=== PATIENT | male | born 1990 | race Hispanic/Latino ===

== ENCOUNTER 2018-01-11 19:01 | Observation (INO) | payer OTHER ==
[2018-01-11 19:27] VITALS: BMI 22.9
--- NOTE | 2018-01-11 20:05 | ED PDOC ---
Arrival/HPI - General Chief Complaint: Headache Time Seen by Provider: 01/11/18 19:36 Historian: Patient, Partner (girlfriend) - History of Present Illness Narrative History of Present Illness (Text): 01/11/18 19:56 A 27 year old male, with no significant past medical history and takes no medications/supplements, who is accompanied by girlfriend and presents to the emergency department for anxiety and change in behavior. Per girlfriend, patient has not been himself for 3 days. Patient had a sudden change in personality and mood 3 days ago. Patient has not been speaking as often as usual , has episodes of forgetfulness and confusion, and fluctuating appetite. Patient reports feeling increase in heart rate and "feeling off". Patient denies other complaints at this time. Also, per girlfriend, no one else knows about patient's current condition at this time. Patient also notes that he was seen at an urgent care prior to arrival, and was advised to come to the emergency department for further evaluation. No PMD Past Medical History - Provider Review Nursing Documentation Reviewed: Yes - Infectious Disease Hx of Infectious Diseases: None - Psychiatric Hx Substance Use: No - Anesthesia Hx Anesthesia: No Family/Social History - Physician Review Nursing Documentation Reviewed: Yes Family/Social History: No Known Family HX Smoking Status: Never Smoked Hx Alcohol Use: Yes Frequency of alcohol use: Socially Hx Substance Use: No Allergies/Home Meds Allergies/Adverse Reactions: Allergies No Known Allergies Allergy (Verified 01/11/18 19:36) Home Medications: Home Meds Medication Instructions Recorded Confirmed No Known Home Med 01/11/18 01/11/18 Review of Systems - Physician Review All systems were reviewed & negative as marked: Yes - Review of Systems Constitutional: absent: Fevers Skin: absent: Rash Neurological: absent: Headache Psychiatric: Anxiety, Other (change in behavior, episodes of forgetfulness, personality change) Physical Exam - Physical Exam Narrative Physical Exam (Text): Gen: VS reviewed, alert, well developed, well nourished, nontoxic, mild distress. ENT: normal pharynx Eye: EOMI, PERRL Neck: no JVD, supple, no adenopathy CV: regular rate, regular rhythm, no rubs, no murmur, no gallops, S1, S2, pulses equal and strong Pulm: no distress, clear to auscultation, no wheeze, no rhonchi, breath sounds equal, no rales Abd: soft, nontender, no guarding, no rebound, no rigidity, normal bowel sounds Ext: no edema Skin: good color, no rash, no cyanosis Psych: responds appropriately to questions, flat affect Neuro: oriented x 3, CN2-12 intact grossly, motor intact, sensation intact Vital Signs Reviewed: Yes Vital Signs Temp Pulse Resp BP Pulse Ox 01/11/18 21:27 98.3 F 60 18 132/69 96 01/11/18 19:01 98.3 F 87 18 136/64 99 Temperature: Afebrile Blood Pressure: Normal Pulse: Regular Respiratory Rate: Normal Appearance: Positive for: Well-Appearing, Non-Toxic, Comfortable Pain Distress: None Mental Status: Positive for: Alert and Oriented X 3 Medical Decision Making ED Course and Treatment: 01/11/18 20:00 Impression: 27 year old male with anxiety and change in behavior. Physical exam shows flat affect; otherwise no other acute findings on physical examination. Plan: -- EKG -- Head CT -- Labs -- Reassess and disposition Progress Notes: 01/11/18 21:47 patient seen for acute confusion, onset 3 days ago, no traumatic or social event that may have triggered this, no psych hx,no AV hallucinations. patient reports that his headache was mild earlier today but is absent at this time. patient does not exhibit signs/symptoms of meningitis or encephalitis. will admit to hospital for further workup/eval 01/11/18 21:53: Case discussed in detail with Dr. Carmichael.accepts admit. dr. garza for neuro consult, ivg 1/2 ns, AM labs and he will follow up with results. CT Head Without Intravenous Contrast Dictated and Authenticated by: Gaby Stanton MD 01/11/2018 9:24 PM Eastern Time ([place] & [place]) IMPRESSION: No evidence of acute intracranial hemorrhage. 01/11/18 21:57 01/11/18 22:09 - Lab Interpretations Lab Results: 01/11/18 20:26 01/11/18 20:26 Lab Results 01/11/18 20:51: Urine Opiates Screen Negative, Urine Methadone Screen Negative, Ur Barbiturates Screen Negative, Ur Phencyclidine Scrn Negative, Ur Amphetamines Screen Negative, U Benzodiazepines Scrn Negative, U Oth Cocaine Metabols Negative, U Cannabinoids Screen Negative 01/11/18 20:26: Ammonia < 9 L 01/11/18 20:26: TSH 3rd Generation 2.47, Alcohol, Quantitative < 10 01/11/18 20:26: Sodium 142, Potassium 4.3, Chloride 99, Carbon Dioxide 27, Anion Gap 20, BUN 11, Creatinine 0.8, Est GFR ( Amer) > 60, Est GFR (Non- Af Amer) > 60, Random Glucose 99, Calcium 9.9, Magnesium 2.1, Total Bilirubin 0.4, AST 32, ALT 29, Alkaline Phosphatase 74, Lactate Dehydrogenase 354, Total Creatine Kinase 387 H, CK-MB (CK-2) 0.6, CK-MB (CK-2) % Cancelled, Troponin I < 0.01, Total Protein 8.2, Albumin 5.0 H, Globulin 3.2, Albumin/Globulin Ratio 1.6 01/11/18 20:26: WBC 8.5, RBC 4.63, Hgb 14.2, Hct 40.9 L, MCV 88.3, MCH 30.7, MCHC 34.7, RDW 12.4, Plt Count 277, MPV 10.3, Gran % 76.2 H, Lymph % (Auto) 18.0 L, [place] % (Auto) 5.5, Eos % (Auto) 0.1 L, Baso % (Auto) 0.2, Gran # 6.47, Lymph # (Auto) 1.5, [place] # (Auto) 0.5, Eos # (Auto) 0.0, Baso # (Auto) 0.02 01/11/18 19:24: POC Glucose (mg/dL) 82 I have reviewed the lab results: Yes - RAD Interpretation Radiology Orders: 01/11/18 20:00 HEAD W/O CONTRAST [CT] Stat EXAM: CT Head Without Intravenous Contrast CLINICAL HISTORY: The patient is a 27 years male; Signs and symptoms; Altered mental status/ memory loss; Confusion or disorientation 01/11/2018 8:00 PM TECHNIQUE: Axial computed tomography images of the head/brain without intravenous contrast. All CT scans at this facility use at least one of these dose optimization techniques: automated exposure control; mA and/or kV adjustment per patient size (includes targeted exams where dose is matched to clinical indication); or iterative reconstruction. COMPARISON: No relevant prior studies available. FINDINGS: Brain: Unremarkable. No hemorrhage. No significant white matter disease. No edema. Ventricles: Unremarkable. No ventriculomegaly. Bones/joints: Unremarkable. No acute fracture. Soft tissues: Unremarkable. Sinuses: Unremarkable as visualized. No acute sinusitis. Mastoid air cells: Unremarkable as visualized. No mastoid effusion. IMPRESSION: No evidence of acute intracranial hemorrhage. Thank you for allowing us to participate in the care of your patient. Dictated and Authenticated by: Gaby Stanton, - EKG Interpretation EKG Interpretation (Text): 01/11/18 20:12 sinus rhythm at 66 bpm, nml qrs, nml axis, no acute sttw abn, lvh Interpreted by ED Physician: Yes Type: 12 lead EKG - Medication Orders Current Medication Orders: Sodium Chloride (Sodium Chloride 0.45%) 1,000 mls @ 60 mls/hr IV .[id number] ADAMA - Scribe Statement The provider has reviewed the documentation as recorded by the Jayden Barriga Provider Scribe Provider Scribe Attestation: All medical record entries made by the Scribe were at my direction and personally dictated by me. I have reviewed the chart and agree that the record accurately reflects my personal performance of the history, physical exam, medical decision making, and the department course for this patient. I have also personally directed, reviewed, and agree with the discharge instructions and disposition. Disposition/Present on Arrival - Present on Arrival Any Indicators Present on Arrival: No History of DVT/PE: No History of Uncontrolled Diabetes: No Urinary Catheter: No History of Decub. Ulcer: No History Surgical Site Infection Following: None - Disposition Have Diagnosis and Disposition been Completed?: Yes Diagnosis: Mental status alteration Disposition: HOSPITALIZED Disposition Time: 22:00 Patient Plan: Observation Patient Problems: Current Active Problems Problem Status Onset Mental status alteration Acute Condition: STABLE Forms: [employer] ([place])
[2018-01-11 20:57] LABS: ALB/GLOB RATIO 1.6 (1.1-1.8); ALT/SGPT 29 U/L (7-56); AST/SGOT 32 U/L (17-59); BLOOD UREA NITROGEN 11 mg/dL (7-21); CALCIUM 9.9 mg/dL (8.4-10.5); GFR AFRICAN-AMERICAN > 60; GFR NON-AFRICAN AMERICAN > 60
[2018-01-11 21:01] LABS: BASO # 0.02 K/mm3 (0.0-2.0); BASO % 0.2 % (0.0-3.0); EOS % 0.1 % (1.5-5.0); GRAN # 6.47 (1.4-6.5); GRAN % 76.2 % (50.0-68.0); HEMOGLOBIN 14.2 g/dL (14.0-18.0); LYMPH # 1.5 (1.2-3.4); MEAN CELL VOLUME 88.3 fl (80.0-105.0); MEAN CORPUSCULAR HEMOGLOBIN 30.7 pg (25.0-35.0); MEAN CORPUSCULAR HGB CONC 34.7 g/dl (31.0-37.0); MEAN PLATELET VOLUME 10.3 fl (7.0-11.0); MONO # 0.5 (0.1-0.6); MONO % 5.5 % (1.0-6.0); RBC 4.63 10^6/uL (3.5-6.1); RED CELL DISTRIBUTION WIDTH 12.4 % (11.5-14.5); WHITE BLOOD COUNT 8.5 10^3/ul (4.5-11.0)
[2018-01-11 21:09] LABS: TROPONIN I < 0.01 ng/mL
[2018-01-11 21:14] LABS: CK-MB 0.6 ng/mL (0.0-3.6)
[2018-01-11 21:54] LABS: BARBITURATES, UR NEGATIVE (NEGATIVE); BENZODIAZEPINES, UR NEGATIVE (NEGATIVE); OPIATES, UR NEGATIVE (NEGATIVE); PHENCYCLIDINE, UR NEGATIVE (NEGATIVE)
[2018-01-11] MEDS ORDERED: Sodium Chloride 0.45% 1,000 ML IV SCH (22:15)
[2018-01-11 23:55] VITALS: RESP 20
[2018-01-12 07:24] LABS: BASO # 0.01 K/mm3 (0.0-2.0); BASO % 0.2 % (0.0-3.0); EOS % 0.6 % (1.5-5.0); GRAN # 4.04 (1.4-6.5); GRAN % 65.1 % (50.0-68.0); HEMOGLOBIN 13.8 g/dL (14.0-18.0); LYMPH # 1.6 (1.2-3.4); LYMPH % 26.5 % (22.0-35.0); MEAN CELL VOLUME 88.1 fl (80.0-105.0); MEAN CORPUSCULAR HEMOGLOBIN 29.7 pg (25.0-35.0); MEAN CORPUSCULAR HGB CONC 33.7 g/dl (31.0-37.0); MEAN PLATELET VOLUME 10.4 fl (7.0-11.0); MONO # 0.5 (0.1-0.6); MONO % 7.6 % (1.0-6.0); RBC 4.64 10^6/uL (3.5-6.1); RED CELL DISTRIBUTION WIDTH 12.5 % (11.5-14.5); WHITE BLOOD COUNT 6.2 10^3/ul (4.5-11.0)
[2018-01-12 07:41] LABS: ALB/GLOB RATIO 1.5 (1.1-1.8); ALBUMIN 4.6 g/dL (3.0-4.8); ALT/SGPT 26 U/L (7-56); AST/SGOT 29 U/L (17-59); BLOOD UREA NITROGEN 12 mg/dL (7-21); CALCIUM 9.7 mg/dL (8.4-10.5); GFR AFRICAN-AMERICAN > 60; GFR NON-AFRICAN AMERICAN > 60
--- NOTE | 2018-01-12 08:23 | CT ---
Date of service: 01/11/2018 PROCEDURE: CT HEAD WITHOUT CONTRAST. HISTORY: altered mental status COMPARISON: None available. TECHNIQUE: Axial computed tomography images were obtained through the head/brain without intravenous contrast. Radiation dose: Total exam DLP = mGy-cm. This CT exam was performed using one or more of the following dose reduction techniques: Automated exposure control, adjustment of the mA and/or kV according to patient size, and/or use of iterative reconstruction technique. FINDINGS: HEMORRHAGE: No intracranial hemorrhage. BRAIN: No mass effect or edema. No atrophy or chronic microvascular ischemic changes. VENTRICLES: Unremarkable. No hydrocephalus. CALVARIUM: Unremarkable. PARANASAL SINUSES: Unremarkable as visualized. No significant inflammatory changes. MASTOID AIR CELLS: Unremarkable as visualized. No inflammatory changes. OTHER FINDINGS: None. IMPRESSION: Normal CT of the Head.
--- NOTE | 2018-01-12 09:37 | CARD ---
APPROVED REPORT Date of service: 01/11/2018 EKG Measurement Heart [id number] <Conclusion> Normal sinus rhythm with sinus arrhythmia Moderate voltage criteria for LVH, may be normal variant Borderline ECG
--- NOTE | 2018-01-12 15:52 | HP ---
Copied To: Aayush Carmichael DO Attending MD: Aayush Carmichael DO HISTORY OF PRESENT ILLNESS: I saw him with his girlfriend partner in the medical room. He is a 27-year-old white male who has no past medical history, no surgeries at this time with memory change, memory loss, change in mentation, a sudden change in personality and mood change as of 3 days ago. He has been forgetful and confused. He has been feeling funny. He is just feeling off. He comes to the emergency room. He has no substance abuse. No drugs. No alcohol. No known family history. No smoking. He does drink occasionally, but no substance abuse. No known drug allergies. No medications. He is not taking anything differently. He drinks coffee 2 cups a day, but he stopped it 3 days ago. REVIEW OF SYSTEMS: No acute vision or hearing loss. No sore throat. No chest pain. No palpitations. No shortness of breath or cough. No abdominal pain, nausea, vomiting, constipation or diarrhea. No leg pain. No skin issues. He is anxious. He has some change in behavior. Episodes of forgetfulness, personality change from the girlfriend. PHYSICAL EXAMINATION: VITAL SIGNS: He has a 98.3 temp, 60 pulse, 18 respiratory rate, 132/69 blood pressure, 96% O2 sat. GENERAL: He is well developed, well nourished, nontoxic, in mild distress and not knowing what is going on. HEENT: Extraocular muscles are intact. Pupils equal, reactive to light. Throat is moist. NECK: Supple. No JVD. HEART: Regular rate. Normal S1, S2. LUNGS: Clear to auscultation. No wheezing. No rhonchi. No rales. ABDOMEN: Soft, nontender. Positive bowel sounds. No guarding, no rebound, no CVA tenderness. EXTREMITIES: There is no edema. SKIN: Good color. No rashes or ulcers. No bug bites that he knows of. NEUROLOGIC: He is alert and oriented x3. LYMPHATICS: Thyroid midline. No palpable lymphadenopathy. LABORATORY DATA: He had multiple tests that were done. He is on IV fluids. He has a negative urine drug screen. He has a 142 sodium, potassium 4.1, BUN 12, creatinine 0.8, GFR is greater than 60, sugar is 90, calcium 9.7, total bili is 0.7, AST is 29, ALT is 26, alk phos 64, total protein 7.7, albumin is 4.6, TSH is 2.47, lactate dehydrogenase of 354. Troponin I is less than 0.01. His white count is 6.2, hemoglobin 13.8, hematocrit 40.9, platelets of 270. He did have a CAT scan, it is not come back yet, but it was read as negative. IMPRESSION: I have ordered MRI of the brain. Also, I ordered consult with Dr. Chang Foy, the neurologist. I am hoping that if he does well and he is improved much better this morning than yesterday, he could be discharged later today, but right now we will see how he does with the MRI and see what Dr. oFy, the neurologist has to say. Aayush Carmichael DO
[2018-01-12 17:56] VITALS: BP 128/77; PULSE 77; TEMP 99.4; O2SAT 95
--- NOTE | 2018-01-12 18:19 | CON ---
Copied To: Chang Foy MD Attending MD: Chang Foy MD DATE: 01/12/2018 NEUROLOGY CONSULTATION CHIEF COMPLAINT: Transient episode of personality change and forgetfulness. HISTORY OF PRESENT ILLNESS: This is a 27-year-old man with no significant past medical history, taking no medications or supplements, who is accompanied by his girlfriend, presented to the ER for possible anxiety, change in behavior. Per girlfriend, he has not been self for the past few days, has sudden change in personality in terms of his flat-like mood, not speaking as often, forgetfulness, mildly confused, fluctuating appetite, increased heart rate, and feeling off. His CAT scan of the head showed no acute intracranial abnormality. He is able to interpret a proverb on neuro exam. His calculation is intact. His minute recall is 3/3. His attention span, thought process are good. His motor exam is nonfocal. He underwent an MRI of the brain, which showed no acute abnormalities . PHYSICAL EXAMINATION: VITAL SIGNS: Temperature 97.9, pulse rate 72, blood pressure 126/90, respiratory rate 20, oxygen saturation 98% on room air. GENERAL: The patient is sitting up in bed, in no acute distress. HEENT: Head is atraumatic and normocephalic. PERRLA. Extraocular muscles intact. NECK: Supple. No JVD. No adenopathy noted. LUNGS: Clear to auscultation. No adventitious sounds. HEART: S1, S2. Normal rate and rhythm. No murmurs, rubs, or gallops. ABDOMEN: Soft, nontender, and nondistended. Bowel sounds present. EXTREMITIES: No clubbing. No cyanosis. Peripheral pulses 2+ felt bilaterally. NEUROLOGIC: The patient is alert and oriented to person, place, month, and year. Speech is fluent without any errors. Cranial nerves II through XII are intact. Motor: Moves all extremities equally. Sensory: Light touch, pinprick, proprioception, and vibration are intact. DTRs are 2+ throughout. Coordination: [id number] intact. No dysmetria noted. LABORATORY DATA: At this point, his last sodium 142, potassium 4.1, chloride 101, carbon dioxide 27, BUN of 12, creatinine 0.8, random glucose of 90. ASSESSMENT AND PLAN: This is a 27-year-old man who presented with symptoms of change in personality, acting off, confused, bizarre, flat mood, feeling off, fluctuating appetite along with increased heart rate in terms of palpitations and not speaking often as usual likely secondary to acute anxiety episode, unlikely a transient ischemic attack. At this time, we would recommend: 1. Sleep hygiene advised. 2. Fluid hydration throughout the day. 3. Gradually go back to his at work as well as at home. 4. and can follow up as an outpatient in my office. Thank you for this consultation. Chang Foy MD
--- NOTE | 2018-01-12 18:20 | MRI ---
Date of service: 01/12/2018 PROCEDURE: MRI BRAIN WITHOUT CONTRAST HISTORY: memory loss COMPARISON: 01/11/2018. TECHNIQUE: Multiplanar, multisequence MR images of the brain were obtained without intravenous contrast enhancement. FINDINGS: HEMORRHAGE: None DWI: No evidence of an acute or early subacute infarction. BRAIN PARENCHYMA: [place]-white matter differentiation is preserved. There is no mass, mass effect or abnormal extra-axial fluid collection. There is no territorial infarction. The midline sagittal structures are normal. VENTRICLES: The ventricles are normal in size, shape and configuration. CRANIUM: There is normal bone marrow signal pattern. ORBITS: Grossly unremarkable. PARANASAL SINUSES/MASTOIDS: Predominantly clear. VASCULAR SYSTEM: There are normal signal voids in the larger intracranial arteries. OTHER FINDINGS: None. IMPRESSION: No acute intracranial abnormality. Essentially negative noncontrast MRI of the brain.
== END 2018-01-12 20:47 | disposition home or self-care (01) ==
LOC: ED 19:01 → ERH 22:00 → 3RSO 22:39
PROVIDERS: ADMIT Family Medicine; ATTEND Family Medicine
DX: R41.82 Altered mental status, unspecified (principal); F41.9 Anxiety disorder, unspecified; F68.8 Other specified disorders of adult personality and behavior
CPT/HCPCS: 36415; 70450; 70551; 80053; 80320; 80324; 80345; 80346; 80349; 80353; 80358; 80361; 82140; 82550; 82553; 82607; 82948; 83615; 83735; 83992; 84443; 84484; 85025; 93005; 99285; G0378; J7030